=== PATIENT | female | born 1995 | race American Indian/Alaskan Native ===

== ENCOUNTER 2017-06-05 22:02 | Emergency (ER) | payer OTHER, MEDICAID ==
[2017-06-05 22:28] VITALS: BP 120/70; PULSE 82; RESP 20; TEMP 98; O2SAT 98
[2017-06-05] MEDS ORDERED: Naproxen 550 mg Tab PO STA (23:04)
[2017-06-05] MEDS ORDERED: Naproxen 550 mg Tab PO ONE (23:32)
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
--- NOTE | 2017-06-06 09:17 | RAD ---
PROCEDURE: Radiographs of the Lumbar Spine. HISTORY: pain COMPARISON: No prior. FINDINGS: BONES: Normal alignment. No listhesis. No fracture. DISC SPACES: Unremarkable. OTHER FINDINGS: There is a circular radiopaque structure overlying the left side of the L1 vertebra, possibly artifactual, extrinsic to the patient that this is not certain. It is not evident in the lateral projection. IMPRESSION: Unremarkable radiographs of the lumbar spine. Probable artifact as described overlying the left side of the L1 vertebra.
== END 2017-06-05 23:56 | disposition home or self-care (01) ==
LOC: C.ER 22:02
DX: S33.5XXA Sprain of ligaments of lumbar spine, initial encounter (principal); V89.2XXA Person injured in unspecified motor-vehicle accident, traffic, initial encounter